=== PATIENT | female | born 1985 | race Two or more races ===

== ENCOUNTER 2024-09-15 17:31 | Emergency (ER) | payer OTHER ==
[~2024-09-15] VITALS: Ht 170.2 cm; Wt 59.0 kg
[2024-09-15] MEDS ORDERED: DEXAMETHASONE SODIUM PHOSPHATE 4 MG/ML VIAL ONE (18:37)
[2024-09-15] MEDS ORDERED: GUAIFENESIN/DEXTROMETHORPHAN 100MG/10ML BLIST.PACK PO ONE ×2 (18:37→18:45)
[2024-09-15] MEDS ORDERED: DEXAMETHASONE SODIUM PHOSPHATE 4 MG/ML VIAL IM ONE (18:45)
[2024-09-15 20:06] LABS: COVID-19 AG NEGATIVE (NEGATIVE)
[2024-09-15 20:07] LABS: INFLUENZA A AG NEGATIVE (NEGATIVE)
[2024-09-15] MEDS ORDERED: ZYRTEC10 M3 PO (20:18)
[2024-09-15] MEDS ORDERED: TUSNEL LIQUID178 ML PO (20:18)
== END 2024-09-15 20:38 | disposition home or self-care (01) ==
LOC: ER 17:32
PROVIDERS: General Practice
DX: J06.9 Acute upper respiratory infection, unspecified (principal); Z20.822 Contact with and (suspected) exposure to COVID-19
CPT/HCPCS: 36415; 96372; 99282; J1100